=== PATIENT | male | born 1965 | race Caucasian/White ===

== ENCOUNTER 2019-12-07 15:52 | Outpatient (CLI) | payer BC, SELFPAY ==
--- NOTE | 2019-12-07 16:27 | XRR_ITS ---
PROCEDURE INFORMATION: Exam: XR Left Knee Exam date and time: 12/07/2019 4:50 PM Age: 54 years old Clinical indication: Pain; Knee; Bilateral; Additional info: Bilateral knee pain TECHNIQUE: Imaging protocol: XR Left knee. Views: 3 views. COMPARISON: No relevant prior studies available. FINDINGS: Bones/joints: There are moderate degenerative changes in the knee greatest in the patellofemoral compartment. Old Thiago-Schlatter type ossicles are noted at the anterior tibial tuberosity. No acute fracture, foreign body or chondrocalcinosis. Small ossicle adjacent to the lateral patella is compatible probable old fracture. There may be a small osteochondral body or pedunculated osteophyte projected between the intercondylar spines of the tibia measuring up to 7 mm in size. No joint effusion. Soft tissues: Normal. XR/XR knee LT 3V* [id number] IMPRESSION: 1. There are moderate degenerative changes in the knee greatest in the patellofemoral compartment. 2. Degenerative changes in the knee possible osteochondral body in the knee joint versus pedunculated osteophyte. 3. No acute fracture. Probable old fracture of the lateral patella.
--- NOTE | 2019-12-07 16:27 | XRR_ITS ---
PROCEDURE INFORMATION: Exam: XR Lumbosacral Spine, 2 or 3 Views Exam date and time: 12/07/2019 4:42 PM Age: 54 years old Clinical indication: Low back pain; Additional info: Lumbar back pain TECHNIQUE: Imaging protocol: XR of the lumbosacral spine, 2 or 3 views. COMPARISON: No relevant prior studies available. FINDINGS: Vertebrae: Moderate to severe facet degenerative changes are noted in the lower lumbar spine. There is mild sclerosis of the superior endplate of L3 which is probable degenerative change. No acute fracture or subluxation. No bony destructive changes. Soft tissues: Normal. XR/XR lumbar spine 2-3V* [id number] IMPRESSION: Diffuse degenerative changes. No acute bony abnormality.
--- NOTE | 2019-12-07 16:27 | XRR_ITS ---
PROCEDURE INFORMATION: Exam: XR Right Knee Exam date and time: 12/07/2019 4:28 PM Age: 54 years old Clinical indication: Pain; Knee; Bilateral; Additional info: Bilateral knee pain TECHNIQUE: Imaging protocol: XR Right knee. Views: 3 views. COMPARISON: No relevant prior studies available. FINDINGS: Bones/joints: There are moderate degenerative changes in the knee joint greatest in the patellofemoral compartment. No joint effusion. Osteochondral body is noted in the anterior knee joint measuring 1.5 cm in greatest dimension. Old [place]-Schlatter type ossicle is noted adjacent to the anterior tibial tuberosity. No acute fracture. No chondrocalcinosis. Soft tissues: Subcutaneous calcification medial to the knee is noted and may reflect old fat necrosis. XR/XR knee RT 3V* [id number] IMPRESSION: Degenerative changes with a large osteochondral body in the anterior knee joint. No acute fracture.
--- NOTE | 2019-12-07 16:28 | XRR_ITS ---
PROCEDURE INFORMATION: Exam: XR Right Hip with Pelvis when Performed Exam date and time: 12/07/2019 4:28 PM Age: 54 years old Clinical indication: Hip pain; Right hip; Additional info: Right hip pain TECHNIQUE: Imaging protocol: XR Right hip with pelvis when performed. Views: 1 view. COMPARISON: No relevant prior studies available. FINDINGS: Bones/joints: Severe degenerative changes are noted in the right hip with a gyin-[id number] appearance. There is bony sclerosis with subchondral cysts and marginal osteophytes involving both the acetabulum and femoral head. No acute fracture or aggressive bony destruction. No definite avascular necrosis. No collapse. Moderate degenerative changes in the right sacroiliac joint are noted. Soft tissues: Unremarkable. XR/XR hip RT 2-3V wo/w pel* [id number] IMPRESSION: Severe end-stage osteoarthritic changes right hip.
== END 2019-12-07 15:53 | disposition home or self-care (01) ==
LOC: RAD 16:00
PROVIDERS: PCP Nurse Practitioner Family; Visit Provider Nurse Practitioner Family
DX: M16.11 Unilateral primary osteoarthritis, right hip (principal); M17.0 Bilateral primary osteoarthritis of knee; M54.5 Low back pain; M25.561 Pain in right knee; M25.551 Pain in right hip
CPT/HCPCS: 72100; 73502; 73562

== ENCOUNTER 2022-03-18 14:08 | Outpatient (CLI) | payer BC, SELFPAY ==
--- NOTE | 2022-03-18 14:21 | USCV_ITS ---
Kaiden Sesay Age: 57 Gender: M : 1965 Exam Date: 03/18/2022 14:34 Ordering Phys: Kayla Duran [employer] Technologist: Heidi Coburn Exam Location: [facility] Indication: Localized edema, shortness of breath BP: 120 / 80 HR: 85 Rhythm: Sinus Technical Quality: Technically difficult study MEASUREMENTS (Male / Female) Normal Values 2D ECHO LV Diastolic Diameter PLAX 5.1 cm 4.2 - 5.9 / 3.9 - 5.3 cm LV Systolic Diameter PLAX 3.3 cm IVS Diastolic Thickness 1.4 cm 0.6 - 1.0 / 0.6 - 0.9 cm IVS Systolic Thickness 1.9 cm LVPW Diastolic Thickness 1.7 cm 0.6 - 1.0 / 0.6 - 0.9 cm LVPW Systolic Thickness 1.4 cm RV Chamber Size 3.5 cm LVOT Diameter 2.0 cm LV Ejection Fraction 2D Teich 71.5 % LA Diameter 4.3 cm LA Width 4.2 cm LA Height 5.1 cm RA Width 3.8 cm RA Height 5.3 cm Aorta at Sinotubular Diameter 2.2 cm M-MODE Aortic Annulus Diameter 3.6 cm LA Ao Ratio MM 1.2 MV E Point Septal Separation 0.6 cm DOPPLER AV Peak Velocity 130.0 cm/s LVOT Peak Velocity 88.0 cm/s AV Area Cont Eq vti 2.6 cm squared AV Area Cont Eq pk 2.2 cm squared MV Area PHT 5.0 cm squared Mitral E to A Ratio 1.7 MV E' Velocity 56.5 cm/s Mitral E to MV E' Ratio 9.3 Mitral E to LV E' Lateral Ratio 8.6 Mitral E to LV E' Septal Ratio 10.1 TR Peak Velocity 263.6 cm/s TR Peak Gradient 27.8 mmHg TR Mean Velocity 195.4 cm/s TR Mean Gradient 16.0 mmHg TR Velocity Time Integral 67.6 cm TV Peak E Velocity 47.0 cm/s PV Peak Velocity 103.0 cm/s RV Acceleration Time 0.1 s RV Ejection Time 0.3 s RV AcT/ET 0.4 FINDINGS Left Ventricle Normal left ventricular size, systolic function and wall thickness. Left ventricular ejection fraction is estimated at 60 %. Although no diagnostic regional wall motion abnormality could be identified, this possibility cannot be completely excluded based on the study. Normal diastolic function. Right Ventricle Normal right ventricular size and systolic function. RVSP could not be calculated due to incomplete tricuspid regurgitation velocity profile. Right Atrium Normal right atrial size. Left Atrium Mildly increased left atrial size. Mitral Valve Structurally normal mitral valve. No mitral valve stenosis. Trace mitral valve regurgitation. Aortic Valve Structurally normal trileaflet aortic valve. No aortic valve stenosis. No aortic valve regurgitation. Tricuspid Valve Structurally normal tricuspid valve. No tricuspid valve stenosis. Trace tricuspid valve regurgitation. Pulmonic Valve Structurally normal pulmonic valve. No pulmonary valve stenosis. Trace pulmonary valve regurgitation. Pericardium No pericardial effusion. Aorta Normal size aortic root and proximal ascending aorta. CONCLUSIONS 1. This is a technically difficult study. 2. Normal left ventricular size, systolic function and wall thickness. Left ventricular ejection fraction is estimated at 60 %. Although no diagnostic regional wall motion abnormality could be identified, this possibility cannot be completely excluded based on the study. Normal diastolic function. 3. Normal right ventricular size and systolic function. 4. No prior similar studies to compare. Cris Miner MD (Electronically Signed) Final Date: 20 March 2022 17:36 S
== END 2022-03-18 14:09 | disposition home or self-care (01) ==
PROVIDERS: PCP Nurse Practitioner Family; Visit Provider Nurse Practitioner Family
DX: R60.0 Localized edema (principal); R06.02 Shortness of breath
CPT/HCPCS: 93306